=== PATIENT | female | born 1995 | race Hispanic/Latino ===

== ENCOUNTER 2018-08-25 04:41 | Emergency (ER) | payer SELFPAY ==
[2018-08-25] MEDS ORDERED: NA CHLORIDE 0.9% 1,000 ML ONE (05:14)
[2018-08-25 05:16] LABS: Absolute Lymphocytes (CBC) 4.5 K/uL (0.7-4.9); Absolute Monocytes 1.3 K/uL (0.1-1.3); Absolute Neutrophil 7.5 K/uL (1.8-8.0); Basophils % 0.6 % (0-1.3); Eosinophils % 4.4 % (0-4.4); Hematocrit 36.9 % (36.0-45.0); Lymphocytes % 32.3 % (15.3-44.8); MCV 97.4 fL (80-100); MPV 8.4 fL (7.6-11.3); Monocytes % 9.1 % (3.3-12.3); RBC Red Blood Cell Count 3.79 M/uL (3.86-4.86)
[2018-08-25 05:20] LABS: Protime INR 0.91
[2018-08-25 05:50] LABS: ALT/SGPT 39 U/L (12-78); AST/SGOT 30 U/L (15-37); Albumin 3.7 g/dL (3.4-5.0); Alkaline Phosphatase 102 U/L (45-117); BUN Blood Urea Nitrogen 13 mg/dL (7-18); Bicarbonate 22 mmol/L (21-32); Bilirubin Direct < 0.1 mg/dL (0-0.2); Bilirubin Total 0.2 mg/dL (0.2-1.0); Glucose Level 82 mg/dL (74-106); Potassium 3.6 mmol/L (3.5-5.1); Protein, Total 7.5 g/dL (6.4-8.2); Sodium Level 144 mmol/L (136-145)
[2018-08-25 06:59] LABS: Barbiturates NEGATIVE (NEGATIVE); Benzodiazepines NEGATIVE (NEGATIVE); Cocaine POSITIVE (NEGATIVE); METHAMPHETAM POSITIVE (NEGATIVE); Methadone NEGATIVE (NEGATIVE); Opiates NEGATIVE (NEGATIVE); Phencyclidine NEGATIVE (NEGATIVE); THC Cannibis POSITIVE (NEGATIVE)
--- NOTE | 2018-08-25 07:13 | RAD REPORT ---
EXAM DESCRIPTION: CT - Head Brain Wo Cont - 08/25/2018 6:51 am CLINICAL HISTORY: Transient alteration of awareness, possible ETOH and unknown substance ingestion COMPARISON: None. TECHNIQUE: Axial 5 mm thick images of the head were obtained without IV contrast. All CT scans are performed using dose optimization technique as appropriate and may include automated exposure control or mA/KV adjustment according to patient size. FINDINGS: No intracranial hemorrhage, mass, edema or shift of mid-line structures. No acute infarcti on changes seen. No abnormal extra-axial fluid collections. Ventricles are normal. Mastoid air cells and visualized portions of the paranasal sinuses are clear. No acute bony findings. IMPRESSION: Negative non-contrast CT head examination.
[2018-08-25 07:38] LABS: Urine Blood 3+ (NEG); Urine Glucose NEGATIVE (NEG); Urine Protein NEGATIVE (NEG)
--- NOTE | 2018-08-25 09:00 | EKG ---
Test Date: 2018-08-25 Test Time: 04:53:42 Nurse Recruiter: TIMOTHY MEASUREMENT RESULTS: Intervals: Rate: 79 MI: 146 QRSD: 96 QT: 394 QTc: 451 [place]: P: 64 MI: 146 QRS: 51 T: 37 INTERPRETIVE STATEMENTS: Normal sinus rhythm Possible Left atrial enlargement Borderline ECG No previous ECG available for comparison Electronically Signed On 08-25-18 08:59:28 CDT by Toribio Solorzano
--- NOTE | 2018-08-25 11:17 | EDPHYS ---
Physician Documentation [facility] Name: Lela Lieberman Age: 23 yrs Sex: Female : 1995 Arrival Date: 08/25/2018 Time: 04:45 Bed 4 Private MD: ED Physician Rene Aranda HPI: 08/25 05:59 This 23 yrs old Female presents to ER via EMS with complaints of Altered rn Mental Status. 05:59 The patient presents with disorientation. Onset: The symptoms/episode began/occurred at rn an unknown time. Possible causes: drug use, alcohol, unknown. Associated signs and symptoms: Pertinent positives: confusion, Pertinent negatives: abdominal pain, chest pain, combativeness, diaphoresis, seizure, shortness of breath, tingling, vertigo, vomiting. Current symptoms: In the emergency department the patient's symptoms have improved. It is unknown whether or not the patient has had similar symptoms in the past. Dropped off by unknown person at police station, told police he picked her up on the road and seemed to get more intoxicated so dropped her off, police brought her here for evaluation. Patient reports remembers being at a bar, has done drugs in past but not sure if she did any tonight. Doesn't remember any other events. . 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 - Social history:: Smoking status: Patient uses tobacco products, smokes one-half pack cigarettes per day, Patient uses alcohol, occasionally. Patient uses street drugs, marijuana. - Ebola Screening: : No symptoms or risks identified at this time. - Family history:: not pertinent. - Hospitalizations: : No recent hospitalization is reported. ROS: 05:59 Constitutional: Negative for fever, chills, and weight loss, Eyes: Negative for injury, rn pain, redness, and discharge, Neck: Negative for injury, pain, and swelling, Cardiovascular: Negative for chest pain, palpitations, and edema, Respiratory: Negative for shortness of breath, cough, wheezing, and pleuritic chest pain, Abdomen/GI: Negative for abdominal pain, nausea, vomiting, diarrhea, and constipation, MS/Extremity: Negative for injury and deformity, Skin: Negative for injury, rash, and discoloration, Neuro: Negative for headache, weakness, numbness, tingling, and seizure, Psych: Negative for depression, anxiety, suicide ideation, homicidal ideation, and hallucinations. Exam: 05:59 Constitutional: This is a well developed, well nourished patient who is awake, alert, rn appears drunk and with psychomotor agitation Head/Face: Normocephalic, atraumatic. Eyes: Pupils equal round and reactive to light, extra-ocular motions intact. Lids and lashes normal. Conjunctiva and sclera are non-icteric and not injected. Cornea within normal limits. Periorbital areas with no swelling, redness, or edema. No nystagmus ENT: dry MM Cardiovascular: Regular rate and rhythm with a normal S1 and S2. No gallops, murmurs, or rubs. Normal PMI, no JVD. No pulse deficits. Respiratory: Lungs have equal breath sounds bilaterally, clear to auscultation and percussion. No rales, rhonchi or wheezes noted. No increased work of breathing, no retractions or nasal flaring. Abdomen/GI: Soft, non-tender, with normal bowel sounds. No distension or tympany. No guarding or rebound. No evidence of tenderness throughout. Skin: Warm, dry with normal turgor. Normal color with no rashes, no lesions, and no evidence of cellulitis. MS/ Extremity: Pulses equal, no cyanosis. Neurovascular intact. Full, normal range of motion. Equal circumference. Neuro: Awake and alert, GCS 15, oriented to person, place, time, and situation. Cranial nerves II-XII grossly intact. Motor strength 5/5 in all extremities. Sensory grossly intact. Vital Signs: 04:48 BP 130 / 89; Pulse 91; Resp 18 S; Temp 97.6(O); Pulse Ox 99% on R/A; Weight 86.18 kg bb (R); Height 5 ft. 6 in. (167.64 cm) (R); Pain 6/10; 05:13 BP 120 / 82; Pulse 85; Resp 16; Pulse Ox 99% on R/A; Pain 0/10; ak1 05:53 BP 115 / 72; Pulse 94; Resp 14; Pulse Ox 100% on R/A; Pain 0/10; ak1 07:26 BP 117 / 80; Pulse 87; Resp 18; Pulse Ox 97% on R/A; ph 08:36 BP 116 / 75; Pulse 84; Resp 18; Pulse Ox 97% on R/A; ph 04:48 Body Mass Index 30.67 (86.18 kg, 167.64 cm) bb MDM: 04:51 Patient medically screened. rn 06:34 ED course: More alert, ambulatory to bathroom, pending ct head. Will sober and dc home. rn Recommend drug cessation. Police left her here, unclear if warrant. . 07:05 Transition of care: After a detail discussion of the patient's case, care is rn transferred to Morales Mcconnell MD. 11:08 Data reviewed: vital signs, nurses notes, lab test result(s), radiologic studies. ED gs course: pt seen and examined awake alert able to walk on own steady gait, will discharge. 08/25 04:51 Order name: Acetaminophen; Complete Time: 05:58 08/25 04:51 Order name: Basic Metabolic Panel; Complete Time: 05:58 08/25 04:51 Order name: CBC with Diff; Complete Time: 05:58 08/25 04:51 Order name: ETOH Level; Complete Time: 05:58 08/25 04:51 Order name: Hepatic Function; Complete Time: 05:58 08/25 04:51 Order name: PT-INR; Complete Time: 05:58 08/25 04:51 Order name: Ptt, Activated; Complete Time: 05:58 08/25 04:51 Order name: Salicylate; Complete Time: 05:58 08/25 04:51 Order name: Urine Drug Screen; Complete Time: 08:18 08/25 04:51 Order name: EKG; Complete Time: 04:52 08/25 05:59 Order name: CT Head Brain wo Cont; Complete Time: 08:18 08/25 06:45 Order name: Urine Dipstick--Ancillary (enter results); Complete Time: 08:18 [facility] 08/25 06:45 Order name: Urine --Ancillary (enter results); Complete Time: 08:18 [facility] 08/25 04:51 Order name: Urine Test (obtain specimen); Complete Time: 06:42 08/25 04:51 Order name: EKG - Nurse/Tech; Complete Time: 05:05 rn 08/25 04:51 Order name: IV Saline Lock; Complete Time: 05:05 rn 08/25 04:51 Order name: Labs collected and sent; Complete Time: 05:05 rn 08/25 04:51 Order name: Urine Dipstick-Ancillary (obtain specimen); Complete Time: 06:42 rn Administered Medications: 05:11 Drug: NS 0.9% 1000 ml Route: IV; Rate: 1000 ml; Site: left antecubital; ak1 06:19 Follow up: IV Status: Completed infusion ak1 07:02 Follow up: IV Status: Completed infusion ak1 Disposition: 08/25/18 11:17 Discharged to Home. Impression: Alcohol abuse with intoxication, unspecified, Cannabis abuse with intoxication, unspecified, Adverse effect of amphetamines. - Condition is Stable. - Discharge Instructions: Chemical Dependency. - Medication Reconciliation Form, Thank You Letter, Antibiotic Education, Prescription Opioid Use form. - Follow up: Private Physician; When: 2 - 3 days; Reason: Re-evaluation by your physician. Signatures: Dispatcher [employer] EDMS Ryley Elliott RN RN sg Ballard, Brenda, RN RN bb Nieto, Roman, MD MD rn Krenek, Amber, RN RN ak1 Morales Mcconnell MD MD Corrections: (The following items were deleted from the chart) 11:55 11:17 08/25/2018 11:17 Discharged to Home. Impression: Alcohol abuse with intoxication, sg unspecified; Cannabis abuse with intoxication, unspecified; Adverse effect of amphetamines. Condition is Stable. Forms are Medication Reconciliation Form, Thank You Letter, Antibiotic Education, Prescription Opioid Use. Follow up: Private Physician; When: 2 - 3 days; Reason: Re-evaluation by your physician. gs
--- NOTE | 2018-08-25 11:17 | ER ---
Nurse's Notes [facility] Name: Lela Lieberman Age: 23 yrs Sex: Female : 1995 Arrival Date: 08/25/2018 Time: 04:45 Bed 4 Private MD: Diagnosis: Alcohol abuse with intoxication, unspecified;Cannabis abuse with intoxication, unspecified;Adverse effect of amphetamines Presentation: 08/25 04:46 Presenting complaint: EMS states: they were toned out for report of pt having altered bb mental status s/p ingestion of ETOH and unknown substance pt escorted by EMILIANO DICKERSON. Transition of care: patient was not received from another setting of care. Onset of symptoms is unknown. Risk Assessment: Do you want to hurt yourself or someone else? Patient reports no desire to harm self or others. Initial Sepsis Screen: Does the patient meet any 2 criteria? No. Patient's initial sepsis screen is negative. Does the patient have a suspected source of infection? No. Patient's initial sepsis screen is negative. Care prior to arrival: None. 04:46 Method Of Arrival: EMS: [facility] 04:46 Acuity: TRISTAN 2 bb Triage Assessment: 05:03 General: Appears in no apparent distress. Behavior is cooperative, drowsy, Smells of ak1 alcohol. Pain: Denies pain. EENT: No signs and/or symptoms were reported regarding the EENT system. Neuro: Level of Consciousness is awake, alert, obeys commands, confused, Oriented to person, place, Moves all extremities. Speech is slurred, Pupils are constricted. Cardiovascular: No deficits noted. Respiratory: No deficits noted. GI: No signs and/or symptoms were reported involving the gastrointestinal system. : No signs and/or symptoms were reported regarding the genitourinary system. Derm: No signs and/or symptoms reported regarding the dermatologic system. Musculoskeletal: No signs and/or symptoms reported regarding the musculoskeletal system. 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 - Social history:: Smoking status: Patient uses tobacco products, smokes one-half pack cigarettes per day, Patient uses alcohol, occasionally. Patient uses street drugs, marijuana. - Ebola Screening: : No symptoms or risks identified at this time. - Family history:: not pertinent. - Hospitalizations: : No recent hospitalization is reported. Screenin:03 Abuse screen: Denies threats or abuse. Denies injuries from another. Nutritional ak1 screening: No deficits noted. Tuberculosis screening: No symptoms or risk factors identified. Fall Risk Gait- Impaired (20 pts.). Assessment: 05:12 Reassessment: Patient appears in no apparent distress at this time. pt resting with ak1 eyes closed, resp even and unlabored. will continue to monitor. 05:52 Reassessment: Patient appears in no apparent distress at this time. No changes from ak1 previously documented assessment. Patient and/or family updated on plan of care and expected duration. Pain level reassessed. Patient is alert, oriented x 3, equal unlabored respirations, skin warm/dry/pink. 07:15 Reassessment: Patient appears in no apparent distress at this time. Patient and/or ph family updated on plan of care and expected duration. Pain level reassessed. Pt remains asleep w/ even, unlabored respirations, awakens easily, VSS, will continue to monitor. 08:36 Reassessment: Patient appears in no apparent distress at this time. No changes from ph previously documented assessment. Patient and/or family updated on plan of care and expected duration. Pain level reassessed. 09:43 Reassessment: pt appears to be sleeping, awakens easily to tactile stimuli, pt gave me permission to call the person she's been staying with named Mabel, to let her know pt is here and will need a ride, . Pt requesting some juice. 09:53 Reassessment: Patient appears in no apparent distress at this time. pt ambulatory to bathroom, with steady gait, pt given pads and mesh underwear per request. Vital Signs: 04:48 BP 130 / 89; Pulse 91; Resp 18 S; Temp 97.6(O); Pulse Ox 99% on R/A; Weight 86.18 kg bb (R); Height 5 ft. 6 in. (167.64 cm) (R); Pain 6/10; 05:13 BP 120 / 82; Pulse 85; Resp 16; Pulse Ox 99% on R/A; Pain 0/10; ak1 05:53 BP 115 / 72; Pulse 94; Resp 14; Pulse Ox 100% on R/A; Pain 0/10; ak1 07:26 BP 117 / 80; Pulse 87; Resp 18; Pulse Ox 97% on R/A; ph 08:36 BP 116 / 75; Pulse 84; Resp 18; Pulse Ox 97% on R/A; ph 04:48 Body Mass Index 30.67 (86.18 kg, 167.64 cm) bb ED Course: 04:45 Patient arrived in ED. bb 04:48 Triage completed. bb 04:48 Arm band placed on Patient placed in an exam room, on a stretcher, on pulse oximetry. bb 04:51 Rene Aranda MD is Attending Physician. rn 05:03 Rosie Vela RN is Primary Nurse. ak1 05:11 Patient has correct armband on for positive identification. Bed in low position. Side ak1 rails up X2. Pulse ox on. NIBP on. 05:12 Initial lab(s) drawn, by me, sent to lab. EKG done, by ED staff, reviewed by Rene Aranda MD. Inserted saline lock: 20 gauge in left antecubital area, using aseptic technique. Blood collected. 05:51 No provider procedures requiring assistance completed. ak1 06:32 Radiology exam delayed due to test not completed at this time. kw1 06:52 CT Head Brain wo Cont In Process Unspecified. EDMS 06:[address] via stretcher. kw1 06:59 CT completed. Patient tolerated procedure well. Patient moved back from CT. kw1 Administered Medications: 05:11 Drug: NS 0.9% 1000 ml Route: IV; Rate: 1000 ml; Site: left antecubital; ak1 06:19 Follow up: IV Status: Completed infusion ak1 07:02 Follow up: IV Status: Completed infusion ak1 Outcome: 11:17 Discharge ordered by . 11:55 Patient left the ED. sg Signatures: Dispatcher [employer] EDMS Ryley Elliott RN RN sg Ballard, Brenda, RN RN bb Williams, Irene, RN RN Rene Aranda MD MD rn Krenek, Amber, RN RN [facility] Ana Laura Denny RN RN ph Starr, Gregory, MD MD gs Wilhelm, Beatriz kw1
== END 2018-08-25 11:55 | disposition home or self-care (01) ==
LOC: ER 04:41
DX: F10.129 Alcohol abuse with intoxication, unspecified (principal); F12.129 Cannabis abuse with intoxication, unspecified; T43.625A Adverse effect of amphetamines, initial encounter; F17.210 Nicotine dependence, cigarettes, uncomplicated
CPT/HCPCS: 36415; 70450; 80048; 80076; 80307; 80320; 80329; 81003; 81025; 85025; 85610; 85730; 93005; 96360; 99285; J7030